=== PATIENT | male | born 1950 | race Caucasian/White ===

== ENCOUNTER 2022-03-28 09:39 | Emergency (ER) | payer MEDICARE, SELFPAY ==
--- NOTE | 2022-03-28 09:46 | ED.URI ---
HPI - URI/Sore Throat General Chief Complaint: Upper Respiratory Infection Stated Complaint: positive for covid Time Seen by Provider: 03/28/22 09:47 Source: patient Mode of arrival: ambulatory Limitations: no limitations History of Present Illness HPI Narrative: Omid is a 71-year-old male patient presenting to the clinic today with complaints of being positive for COVID. He is complaining of coughing and congestion. He is a cancer patient MD elicited complaint: sore throat and nasal congestion Related Data Home Medications Medication Instructions Recorded Confirmed acyclovir 400 mg tablet mg 03/28/22 calcium carb-vitamin D3 ER 600 mg tablet PO 03/28/22 (1,500 mg)-500 unit tablet,ER 24 hr carfilzomib 10 mg intravenous mg IV 03/28/22 solution cholecalciferol (vitamin D3) 50 50 mcg PO DAILY 03/28/22 03/28/22 mcg (2,000 unit) capsule (Vitamin D3) cyclophosphamide 100 mg mg IV 03/28/22 intravenous powder for solution dexamethasone 20 mg tablet 20 mg PO DAILY 03/28/22 03/28/22 gabapentin 300 mg capsule mg 03/28/22 multivitamin,fk-sjkz-vaahtawh tablet 03/28/22 palonosetron 0.075 mg/1.5 mL 0.075 mg IV ONCE 03/28/22 03/28/22 intravenous solution rosuvastatin 10 mg tablet 10 mg PO DAILY 03/28/22 03/28/22 vitamin B complex 1 cap PO DAILY 03/28/22 03/28/22 vitamin E mixed 400 unit capsule unit PO 03/28/22 Allergies Allergy/AdvReac Type Severity Reaction Status Date / Time No Known Allergies Allergy Verified 03/28/22 10:04 Review of Systems Review of Systems: Pertinent positives per HPI. Patient denies any fever, chills, rash, headache, visual changes, dizziness, cough, shortness of breath, chest pain, palpitations, nausea, vomiting, diarrhea, constipation, abdominal pain, or any urinary issues. PMFSH Comments At the time of my signature, I reviewed and agree with the nursing past medical, surgical, social, and family history. There is no relevant family history pertinent to the patient complaint. Exam Narrative: General: Well-developed, well nourished, in no apparent distress Head: Normocephalic, atraumatic Eyes: Pupils equally round and reactive to light bilaterally, EOM intact, sclera and conjunctive clear, no discharge, lids normal Ears: TMs intact and clear, ear canals clear, no drainage, grossly hearing normal. Nose: Nares patent, clear nasal discharge, no inflammation, no sinus tenderness. Mouth: Oral pharynx without lesions or masses, good dentition, MMM. Neck: Supple, trachea midline, no enlargement of anterior or posterior cervical nodes, no thyroid masses or goiter palpable. Cardio: Regular rate and rhythm, s1 and s2 normal, no murmur appreciated. Resp: Clear to auscultation bilaterally, no rhonchi, rales, wheezing or rubs Course Course Emergency Course: Portions of this record may have been created with voice recognition software. Level of Care: Express Care Visit Vital Signs Vital signs: Vital Signs Temperature 37.8 C H 03/28/22 09:55 Pulse Rate 55 L 03/28/22 09:55 Respiratory Rate 16 03/28/22 09:55 Blood Pressure 141/61 H 03/28/22 09:55 Pulse Oximetry 100 03/28/22 09:55 Temperature 37.8 C H 03/28/22 09:55 Pulse Rate 55 L 03/28/22 09:55 Respiratory Rate 16 03/28/22 09:55 Blood Pressure 141/61 H 03/28/22 09:55 Pulse Oximetry 100 03/28/22 09:55 Vital signs reviewed MDM - URI/Sore Throat MDM Narrative Medical decision making narrative: At the time of visit patient is resting comfortably on the exam table. Differential Diagnosis Differential diagnosis: Likely sinusitis, viral infection, influenza and pharyngitis Discharge Plan Discharge Clinical Impression: COVID-19 Patient Disposition: Home, Self-Care Condition: Stable Instructions: Antibiotic Form, COVID-19 (Coronavirus Disease 2019) (ED), How to Recover from COVID-19 at Home (ED) Additional Instructions: Take prescription medications only as prescribed-Molnupiv
[2022-03-28 09:55] VITALS: BP 141/61; PULSE 55; RESP 16; TEMP 37.8; O2SAT 100
== END 2022-03-28 10:30 | disposition home or self-care (01) ==
PROVIDERS: Emergency Provider Nurse Practitioner Family
DX: U07.1 COVID-19 (principal); E78.00 Pure hypercholesterolemia, unspecified; I10 Essential (primary) hypertension; C96.9 Malignant neoplasm of lymphoid, hematopoietic and related tissue, unspecified
CPT/HCPCS: 87426; 99213; C9803; G0463